=== PATIENT | female | born 1970 | race Caucasian/White ===

== ENCOUNTER 2022-10-26 15:47 | Day surgery (SDC) | payer OTHER ==
[2022-10-26] MEDS ORDERED: LIDOCAINE HCL 2% 100 MG/5 ML IJ ONE (15:48)
[2022-10-26] MEDS ORDERED: BUPIVACAINE 0.5% VIAL IJ ONE (15:48)
[2022-10-26] MEDS ORDERED: Depo-Medrol 40 MG/ML IM ONE (15:48)
[2022-10-26] MEDS ORDERED: Lactated Ringers 1,000 ML IV ONE (16:59)
--- NOTE | 2022-10-26 20:09 | XRAY ---
Indication: Right knee injection. Intraoperative fluoroscopy provided for 7 seconds. Single digital spot image submitted for interpretation demonstrates needle tip projecting over the right femur intercondylar notch. No contrast injected due to known contrast allergy. Correlate with intraoperative findings/report.
--- NOTE | 2022-10-26 20:09 | XRAY ---
Indication: Left knee injection. Intraoperative fluoroscopy provided for 10 seconds. Single digital spot image submitted for interpretation demonstrates needle tip projecting over the left femur intercondylar notch. No contrast injected due to known contrast allergy. Correlate with intraoperative findings/report.
--- NOTE | 2022-10-27 11:45 | XRAY ---
7 seconds of fluoroscopy was used in surgery for a right knee intra-articular injection.
--- NOTE | 2022-10-27 11:45 | XRAY ---
10 seconds of fluoroscopy was used in surgery for a left knee intra-articular injection.
== END 2022-10-26 18:42 | disposition home or self-care (01) ==
LOC: SDC-PAIN 15:47
PROVIDERS: ATTEND Psychiatry & Neurology Pain Medicine
DX: M17.0 Bilateral primary osteoarthritis of knee (principal); Z79.899 Other long term (current) drug therapy
CPT/HCPCS: 20610; 73560; 77002; J1030